=== PATIENT | male | born 2000 | race Hispanic/Latino ===

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

== ENCOUNTER 2022-04-23 15:14 | Emergency (ER) | payer MEDICAID ==
[2022-04-23 15:34] VITALS: BP 142/76
[2022-04-23 15:46] LABS: BILIRUBIN,URINE NEGATIVE (NEGATIVE); CLARITY,URINE CLEAR; COLOR,URINE YELLOW; GLUCOSE, URINE (UA) NEGATIVE (NEGATIVE); KETONES,URINE NEGATIVE (NEGATIVE); LEUKOCYTE ESTERASE ,URINE NEGATIVE (NEGATIVE); NITRITE,URINE NEGATIVE (NEGATIVE); PH,URINE 6.5 (5-9); PROTEIN,URINE NEGATIVE (NEGATIVE)
[2022-04-23 15:53] LABS: BACTERIA,URINE NEGATIVE /HPF
--- NOTE | 2022-04-23 16:13 | ED GU-Male ---
General Chief Complaint: - Reproductive Stated Complaint: FREQUENT URINATION Nursing Triage Note: PATIENT STATES HE HAS HAD URINARY FREQUENCY AND BURNING FOR ABOUT ONE WEEK. STATES HIS URINE WAS TESTED FOR STD'S AT THE CLINIC 3 DAYS AGO AND NOTHING WAS FOUND. DENIES FEVER NAUSEA OR VOMITING. History of Present Illness Date Seen by Provider: Apr 23, 2022 Time Seen by Provider: 14:50 Initial Comments 22-year-old male presents for urinary frequency with occasional burn ing prior to urination. He states the burning improves after he urinates. He is sexually active but has not been for the proximately 2 weeks, no new partners. He reports using condoms at all times. He reports being tested for chlamydia and gonorrhea both being negative in the last week. He denies any history of diabetes, however his mother is type II. He reports increased thirst and increased urination. Accu-Chek 147, he ate fried chicken and potatoes approximately 1 hour ago. Denies any testicular or groin pain. Timing/Duration: intermittent Severity/Quality: mild Sexual Rudy History: less than 2 months ago, single partner Associated Symptoms: No abdominal pain; dysuria; No fever/chills, No lower back pain, No nausea/vomiting; urinary frequency Allergies and Home Medications Allergies Coded Allergies: Penicillins (Verified Allergy, Unknown, 04/23/22) chocolate flavor (Verified Allergy, Unknown, 04/23/22) milk (Unverified Adverse Reaction, Intermediate, 04/23/22) Patient Home Medication List Home Medication List Reviewed: Yes Azithromycin (Zithromax) 500 Mg Tablet, 500 MG PO DAILY Prescribed by: MATT CORRAL on 11/24/19 0454 Review of Systems Review of Systems Constitutional: no symptoms reported, see HPI Genitourinary: see HPI, dysuria, frequency All Other Systemes Reviewed Negative Unless Noted: Yes Past Zwlsxov-Ghziew-Brmqtd Hx Patient Social History Tobacco Use?: No Use of E-Cig and/or Vaping dev: No Substance use?: No Alcohol Use?: No Pt feels they are or have been: No Immunizations Up To Date Tetanus Booster (TDap): Less than 5yrs PED Vaccines UTD: Yes Influenza Vaccine Up-to-Date: No; Not Current First/Initial COVID19 Vaccinat: NOT VAC Seasonal Allergies Seasonal Allergies: No Past Medical History Surgery/Hospitalization HX: DENIES Surgeries: No Respiratory: No Cardiac: No Neurological: No Genitourinary: No Gastrointestinal: No Musculoskeletal: Yes Fractures Endocrine: No HEENT: No Cancer: No Psychosocial: No Integumentary: No Blood Disorders: No Family Medical History Reviewed Nursing Family Hx No Pertinent Family Hx Physical Exam Vital Signs Vital Signs - First Documented 04/23/22 15:34 Temp 37.3 Pulse 67 Resp 18 B/P (MAP) 142/76 (98) Pulse Ox 98 O2 Delivery Room Air Capillary Refill : Less Than 3 Seconds Height, Weight, BMI Height: 5'9.00" Weight: 140lbs. oz. [id number]; 20.00 BMI Method:Stated General Appearance: WD/WN, no apparent distress Neck: non-tender, full range of motion, supple, normal inspection Cardiovascular: normal peripheral pulses, regular rate, rhythm Respiratory: chest non-tender, lungs clear, normal breath sounds Gastrointestinal: normal bowel sounds, non tender, soft Extremities: normal range of motion, non-tender, normal inspection Neurologic/Psychiatric: no motor/sensory deficits, alert, normal mood/affect, oriented x 3 Skin: normal color, warm/dry Progress/Results/Core Measures Suspected Sepsis SIRS Temperature: Pulse: 67 Respiratory Rate: 18 Blood Pressure 142 /76 Mean: 98 Results/Orders Lab Results Laboratory Tests Test 04/23/22 15:31 04/23/22 15:33 Range/Units Glucometer 147 H 70-110 MG/DL Urine Color YELLOW Urine Clarity CLEAR Urine pH 6.5 5-9 Urine Specific [place] 1.010 L 1.016-1.022 Urine Protein NEGATIVE NEGATIVE Urine Glucose (UA) NEGATIVE NEGATIVE Urine Ketones NEGATIVE NEGATIVE Urine Nitrite NEGATIVE NEGATIVE Urine Bilirubin NEGATIVE NEGATIVE Urine Urobilinogen 0.2 < = 1.0 MG/DL Urine Leukocyte Esterase NEGATIVE NEGATIVE Urine RBC (Auto) NEGATIVE NEGATIVE Urine RBC NONE /HPF Urine WBC NONE /HPF Urine Squamous Epithelial Cells NONE /HPF Urine Crystals NONE /LPF Urine Bacteria NEGATIVE /HPF Urine Casts NONE /LPF Urine Mucus NEGATIVE /LPF Urine Culture Indicated NO My Orders Orders - KATIANA HINOJOSA Ua Culture If Indicated (04/23/22 15:18) Neis Myron Dna Urine Test (04/23/22 16:06) Chlamydia Trachomatis Urine (04/23/22 16:06) Vital Signs/I&O 04/23/22 15:34 Temp 37.3 Pulse 67 Resp 18 B/P (MAP) 142/76 (98) Pulse Ox 98 O2 Delivery Room Air Capillary Refill : Less Than 3 Seconds Blood Pressure Mean: 98 Point of Care Testing Finger Stick Blood Glucose: 147 Blood Glucose Action Taken: RN notified Departure Impression Primary Impression: Urinary frequency Disposition: HOME, SELF-CARE Condition: Improved Departure-Patient Inst. Decision time for Depature: 15:50 Referrals: [facility] (PCP/Family) Primary Care Physician Patient Instructions: Nephrotic Syndrome (DC) Add. Discharge Instructions: Check blood sugar with your mom's glucometer every morning for next 2-3 days. If continued frequent urination, see your primary care provider at [facility] for further workup. Increase water intake, limit pop or coffee. Return to the Emergency dept for new or urgent healthcare needs. All discharge instructions reviewed with patient and/or family. Voiced understanding. KATIANA HINOJOSA Apr 23, 2022 16:13
== END 2022-04-23 16:39 | disposition home or self-care (01) ==
LOC: EDUNIT# 15:14 → ER 15:18
DX: R35.0 Frequency of micturition (principal); Z28.310 Unvaccinated for COVID-19
CPT/HCPCS: 36415; 81000; 82947; 87491; 87591

== ENCOUNTER → 2022-05-16 | Outpatient (CLI) | payer MEDICAID ==
--- NOTE | 2022-05-16 10:35 | Diagnostic Imaging Report ---
Indication: History of ureteral calculi. COMPARISON: 06/29/2021 FINDINGS: 2 frontal radiograph views of the abdomen were obtained. Small bowel loops are nondistended. There is no large collection of free intraperitoneal air. No unexpected extraosseous calcifications or radiopaque foreign bodies are seen. Osseous structures show no gross acute abnormalities. IMPRESSION: 1. Nonobstructive small bowel gas pattern. Dictated by: Dictated on workstation # [id number]
--- NOTE | 2022-05-16 11:03 | Diagnostic Imaging Report ---
PROCEDURE: US Renal Bilateral. TECHNIQUE: Multiple Real-time grayscale images were obtained over the kidneys in various projections bilaterally. INDICATION: Renal colic. FINDINGS: The right kidney is 11.3 cm and the left 10.7 cm. There is normal bilateral renal cortical thickness, echotexture, and morphology. No solid or cystic renal mass. No echogenic or shadowing stone. The urinary bladder volume prevoid is 122 mL with a 20 mL post void residual. No intraluminal bladder debris or mass. The ureteral jet patency was confirmed bilaterally with color Doppler. IMPRESSION: Normal retroperitoneal ultrasound. Dictated by: Dictated on workstation # [id number]
== END ==
LOC: RAD 09:07
PROVIDERS: ATTEND Nurse Practitioner Family
DX: N23 Unspecified renal colic (principal); R35.0 Frequency of micturition; Z87.442 Personal history of urinary calculi
CPT/HCPCS: 74018; 76770